=== PATIENT | female | born 1970 | race Hispanic/Latino ===

== ENCOUNTER 2024-07-05 16:09 | Emergency (ER) | payer BC ==
[~2024-07-05] VITALS: Ht 167.6 cm; Wt 86.2 kg
--- NOTE | 2024-07-05 16:25 | ERN ---
General Chief Complaint: Toe Pain/Injury Stated Complaint: MECHANICAL FALL Time Seen by MD: 16:12 History of Present Illness Initial Comments 54-year-old female who presents for left toe injury. She was at work on a mop bucket fell on her toe yesterday. She has bruising to the base of the 2nd and 3rd digits. Decreased range of motion due to pain. Neurovascularly intact. No other injuries. No medical conditions. Allergies: Coded Allergies: No Known Allergies (Unverified Allergy, Unknown, 07/05/24) Home Meds Active Scripts Meloxicam (Meloxicam) 15 Mg Tablet, 1 TAB PO DAILY for 10 Days, #10 TAB 0 R efills Prov:REN ARMIJO Abdulkadir DO 07/05/24 Acetaminophen with Codeine (Acetaminophen-Cod #3 Tablet) 300 Mg-30 Mg Tablet, 1 TAB PO Q6HPRN PRN for pain for 7 Days, #28 TAB 0 Refills Prov:REN ARMIJO DO 07/05/24 Past Medical History Past Medical History: No Pertinent History Past Surgical History: ROS Dictation CONSTITUTIONAL: No chills, no fever, no weakness, no diaphoresis, no malaise. HEAD/FACE: No signs of trauma. EENT: No eye pain, no blurred vision, no tearing, no double vision, no ear pain, no ear discharge, no nose pain, no nasal congestion, no throat pain, no throat swelling, no mouth pain. RESPIRATORY: No cough, no orthopnea, no SOB, no stridor, no wheezing. CARDIOVASCULAR: No chest pain, no edema, no palpitations, no syncope. GASTROINTESTINAL/ABDOMINAL: No abdominal pain, no constipation, no diarrhea, no nausea, no vomiting. GENITOURINARY: No abnormal discharge, no dysuria, no frequent urination, no hematuria. No complaints of pain in the genitals. MUSCULOSKELETAL: Left toe pain in. INTEGUMENTARY: No change in color, no change in hair/nails, no dryness, no lesion, no lumps, no rash. NEUROLOGICAL/PSYCH: No anxiety, not depressed, no emotional problem, no headache, no numbness, no pre-existing deficit, no history of seizures, no tremors, no weakness. HEMATOLOGIC/LYMPHATIC: Not anemic, no history of blood clots, no apparent bleeding, no bruising, glands not swollen. All Systems Negative, Except as Noted. Physical Exam Physical Exam Dictation VITAL SIGNS: Reviewed. GENERAL APPEARANCE: Alert, oriented x3, no acute distress. HEAD AND FACE: Non-traumatic. EYES: PERRL, pink conjunctivas, eyelid no trauma, anterior chamber clear. EARS: Pinnas intact and no signs of trauma or erythema. Ear canals clear and no discharge. TMs no erythema. NOSE: No discharge, no bleeding. OROPHARYNX: Mouth normal, teeth no caries, tongue pink. Pharynx clear, no e rythema. Tonsils no exudates, no abscesses noted. Mucous membrane moist. NECK: Supple, non-tender, no thyromegaly, no masses, no JVD, no bruits. BREAST: Deferred. CHEST: No tenderness, no crepitus, no paradoxical movement, no retractions. LUNGS: Clear, well-ventilated, symmetric, no rales, no wheezing, no rhonchi, no stridor, good breath sounds bilaterally. HEART: Regular rate, regular rhythm, no murmur, no gallops. VASCULAR: No peripheral edema. ABDOMEN: Soft, positive bowel sounds, nondistended, no guarding, nontender, no rebound, no masses no hepatomegaly, no splenomegaly, no Serrato's sign, no hernias. RECTAL: Deferred. GENITAL: Deferred. NEUROLOGICAL: Normal speech, gross motor function intact, gross sensory function intact. MUSCULOSKELETAL: Neck nontender, full range of motion, back nontender, full range of motion. Fabian of the base of 2nd and 3rd digits. EXTREMITIES: Nontender, full range of motion. SKIN: Color pink, dry, no turgor, no rash, no lacerations, no abrasions, no contusions. LYMPHATICS: Deferred. ED Course Orders Procedure Category Date Status Time Foot Comp 3+Vws Lt RAD 07/05/24 Taken 16:20 *Nursing CPOE 07/05/24 Verified Communication: 17:01 Vital Signs Date Time Temp Pulse Resp B/P (MAP) Pulse Ox O2 Delivery O2 Flow Rate FiO2 07/05/24 16:27 97.9 74 20 132/74 97 Room Air* 0 21 07/05/24 16:20 97.9 71 16 122/77 97 Room Air 0 DX & DISP Disposition: Discharge Departure Impression: Primary Impression: Fracture of proximal phalanx of toe of left foot Condition: Stable Scripts Meloxicam (Meloxicam) 15 Mg Tablet 1 TAB PO DAILY for 10 Days, #10 TAB 0 Refills Prov: REN ARMIJO DO 07/05/24 Acetaminophen with Codeine (Acetaminophen-Cod #3 Tablet) 300 Mg-30 Mg Tablet 1 TAB PO Q6HPRN PRN for pain for 7 Days, #28 TAB 0 Refills Prov: REN ARMIJO DO 07/05/24 Additional Instructions: You have a toe fracture at the base of the 3rd toe. Keep the toe ivelisse taped. You will need to follow up with an orthopedist within one week. I have given you a referral to Dr. Petersen. I have prescribed meloxicam and Tylenol with codeine to use as needed for pain. You can use both of these medications as prescribed. You can apply ice to the toe for 20 minutes, two or 3 times per day to reduce swelling. Limit weight-bearing activities and avoid tight or restrictive foot wear. I recommend a stiff-soled shoe. This helps reduce movement to the fractured toe. Please return to the emergency department if you have any concern. Referrals: NONE (PCP) JL PETERSEN MD, RYAN E DO Jul 05, 2024 16:24
[2024-07-05] MEDS ORDERED: ACET-2079 PO (16:59)
[2024-07-05] MEDS ORDERED: MELO-108 PO (16:59)
[2024-07-05 17:16] VITALS: BP 127/71; PULSE 71; RESP 18; TEMP 97.1; O2SAT 97
--- NOTE | 2024-07-05 17:51 | HMCIMG ---
FOOT COMP 3+VWS LT REASON: injury base of 2nd & 3rd digits TECHNIQUE: 3 views were obtained. FINDINGS: There is a spiral fracture of the proximal phalanx of the left third toe, nondisplaced. Bones appear otherwise unremarkable. Soft tissues appear unremarkable. IMPRESSION: 1. Nondisplaced fracture proximal phalanx of the left third toe.
== END 2024-07-05 17:19 | disposition home or self-care (01) ==
LOC: EDH 16:09
DX: S92.512A Displaced fracture of proximal phalanx of left lesser toe(s), initial encounter for closed fracture (principal); Z79.1 Long term (current) use of non-steroidal anti-inflammatories (NSAID); Z98.890 Other specified postprocedural states; W20.8XXA Other cause of strike by thrown, projected or falling object, initial encounter; Y93.89 Activity, other specified; Y92.89 Other specified places as the place of occurrence of the external cause; Y99.8 Other external cause status
CPT/HCPCS: 73630; 99283

== ENCOUNTER 2024-11-20 21:08 | Emergency (ER) | payer BC ==
[~2024-11-20] VITALS: Ht 165.1 cm; Wt 89.8 kg
[~2024-11-20 21:08] MED LIST: ACET-2079 PO; MELO-108 PO
[2024-11-20 21:57] LABS: BASOPHILS # (AUTO) 0.02 K/uL (0.00-0.20); BASOPHILS % (AUTO) 0.2 % (0.0-5.0); EOSINOPHILS # (AUTO) 0.01 K/uL (0.00-0.70); EOSINOPHILS % (AUTO) 0.1 % (0.0-8.0); HEMATOCRIT 33.8 % (36-48); IMMATURE GRANULOCYTE ABSOLUTE 0.04 K/uL (0-1); LYMPHOCYTES # (AUTO) 2.1 K/uL (1.0-4.8); LYMPHOCYTES % (AUTO) 19.1 % (21.0-51.0); MEAN CORPUSCULAR HGB CONC 32.5 g/dL (32.0-36.0); MEAN CORPUSCULAR VOLUME 92.1 fL (79-99); MONOCYTES # (AUTO) 0.9 K/uL (0.1-1.0); MONOCYTES % (AUTO) 8.3 % (3.0-13.0); NEUTROPHILS % (AUTO) 71.9 % (40.0-77.0); PLATELET COUNT (AUTO) 301 K/uL (130-400); RED BLOOD CELL COUNT(AUTO) 3.67 MIL/uL (4.00-5.50); RED CELL DISTRIBUTION WIDTH 11.9 % (11.0-15.5); WHITE BLOOD COUNT (AUTO) 11.1 K/uL (4.8-10.8)
[2024-11-20 21:58] LABS: APPEARANCE,URINE CLEAR (CLEAR); BILIRUBIN,URINE NEGATIVE (NEGATIVE); COLOR,URINE LIGHT-YELLOW (YELLOW); GLUCOSE, URINE (UA) NEGATIVE (NEGATIVE); KETONES,URINE NEGATIVE (NEGATIVE); LEUKOCYTE ESTERASE ,URINE NEGATIVE Leu/uL (NEGATIVE); NITRATE,URINE NEGATIVE (NEGATIVE); OCCULT BLOOD,URINE NEGATIVE (NEGATIVE); PROTEIN,URINE NEGATIVE (NEGATIVE)
[2024-11-20 21:59] LABS: ADD UA MICROSCOPIC YES
[2024-11-20 22:01] LABS: MUCUS,URINE RARE LPF (None Seen); RBC,URINE 0-1 /HPF (0-1); SQUAMOUS EPITHELIAL CELL,UR RARE /HPF (0-2); WBC,URINE 0-1 /HPF (0-1)
[2024-11-20 22:07] LABS: CREATININE 0.8 mg/dL (0.5-1.0); POTASSIUM 3.2 mmol/L (3.5-5.1)
[2024-11-20 22:12] LABS: ALBUMIN 3.4 g/dL (3.5-5.0); BILIRUBIN,TOTAL 0.2 mg/dL (0.2-1.0); TOTAL PROTEIN, SERUM 8.4 g/dL (6.0-8.3)
[2024-11-20 22:23] LABS: COVID19 (SARS ANTIGEN RAPID) PRESUMPTIVE NEGATIVE (NEGATIVE); INFLUENZA TYPE A Negative For Type A (NEGATIVE)
[2024-11-20 22:36] LABS: INFLUENZA TYPE B Positive For Type B (NEGATIVE)
[2024-11-20] MEDS: PoTASSium BIcarbonate/CIT AC 25 MEQ TABLET.EFF PO ONE (23:22)
--- NOTE | 2024-11-20 23:35 | ERN ---
ED Note History of Present Illness Stated Complaint: C/O SOB,REDNESS TO FACE Chief Complaint: Shortness of Breath Time Seen by MD: 21:22 Time Seen by Midlevel: 21:22 Dictation: The patient is a 54-year-old female with a history of who presents to the emergency department with complaints of shortness of breath, occasional cough with white mucus, facial flushing onset four days ago. Patient reports she was seen by her PCP who gave her an albuterol treatment and was discharged with steroids and doxycycline for pneumonia. Patient denies any chest pain, denies any fevers, Allergies: Coded Allergies: No Known Allergies (Unverified Allergy, Unknown, 07/05/24) Home Meds Active Scripts Meloxicam (Meloxicam) 15 Mg Tablet, 1 TAB PO DAILY for 10 Days, #10 TAB 0 Refills Prov:REN ARMIJO DO 07/05/24 Acetaminophen with Codeine (Acetaminophen-Cod #3 Tablet) 300 Mg-30 Mg Tablet, 1 TAB PO Q6HPRN PRN for pain for 7 Days, #28 TAB 0 Refills Prov:REN ARMIJO DO 07/05/24 Past Medical History Past Medical History: No Pertinent History Surgical History: RN Note Reviewed/Agreed w/PFSH: Yes Review of System Dictation Constitutional: Negative for fever,chills, and weight loss Eyes: Negative for injury, pain,redness, and discharge ENT: Negative for injury,pain or swelling Cardiovascular: Negative for chest pain, palpitations, and edema Respiratory: Negative for wheezing, positive for shortness of breath, cough Abdomen/GI: Negative for abdominal pain, nausea, vomiting, diarrhea, and constipation Back: Negative for injury and pain : Negative for injury, bleeding and discharge MS/Extremity: Negative for injury and deformity Skin: Negative for rash, and discoloration Neuro: Negative for headache, weakness, numbness, tingling, and seizure Psych: Negative for suicide ideation, homicidal ideation, and hallucinations Initial Vital Sign VS Vital Signs Date Time Temp Pulse Resp B/P (MAP) Pulse Ox O2 Delivery O2 Flow Rate FiO2 11/20/24 21:11 97.2 70 20 138/77 98 Room Air 11/20/24 21:26 0 21 Physical Exam Dictation Vital Signs reviewed General Appearance: Alert, oriented x 3, no acute distress, well developed, nourished. Head and Face: non-traumatic. Eyes: PERRL, pink conjunctivas, eyelid no trauma, anterior chamber with arcus senilis. Ears: Pinnas intact and no signs of trauma or erythema ear canals clear and no discharge TM no erythema Nose: No discharge, no bleeding. Oropharynx: Mouth normal, tongue pink. pharynx clear,no erythema, tonsils no exudates, no abscesses noted, mucous membrane moist Neck: Supple, non-tender, no thyromegaly, no masses, no JVD, no bruits Breast:Deferred Chest:No tenderness, no crepitus, no paradoxical movement, no retractions Lungs:Clear, well-ventilated, symmetric, no rales, no wheezing, no rhonchi, no stridor, good breath sounds bilaterally Heart: Regular rate, regular rhythm, no murmur, no gallops Vascular: no peripheral edema, Abdomen: Soft, positive bowel sounds, nondistended, no guarding, nontender, no rebound, no masses no hepatomegaly, no splenomegaly, no Serrato's sign, no hernias. Rectal: Deferred Genital: Deferred Neurological: Normal speech, motor function intact, sensory function intact Musculoskeletal: Neck nontender, full range of motion, back nontender, full range of motion, Extremities: nontender, full range of motion Skin: Color pink, dry, no turgor, no rash, no lacerations, no abrasions, no contusions. Lymphatic: Deferred Results (Laboratory/Radiology) Laboratory/Radiology Laboratory Tests Test 11/20/24 21:30 11/20/24 22:00 White Blood Count 11.1 K/uL (4.8-10.8) H Red Blood Count 3.67 MIL/uL (4.00-5.50) L Hemoglobin 11.0 g/dL (12.0-16.0) L Hematocrit 33.8 % (36-48) L Mean Corpuscular Volume 92.1 fL (79-99) Mean Corpuscular Hemoglobin 30.0 pg (27.0-33.0) Mean Corpuscular Hemoglobin Concent 32.5 g/dL (32.0-36.0) Red Cell Distribution Width 11.9 % (11.0-15.5) Platelet Count 301 K/uL (130-400) Mean Platelet Volume 10.0 fL (7.5-10.5) Immature Granulocyte % (Auto) 0.4 % (0-1) Neutrophils (%) (Auto) 71.9 % (40.0-77.0) Lymphocytes (%) (Auto) 19.1 % (21.0-51.0) L Monocytes (%) (Auto) 8.3 % (3.0-13.0) Eosinophils (%) (Auto) 0.1 % (0.0-8.0) Basophils (%) (Auto) 0.2 % (0.0-5.0) Neutrophils # (Auto) 8.0 K/uL (1.8-7.7) H Lymphocytes # (Auto) 2.1 K/uL (1.0-4.8) Monocytes # (Auto) 0.9 K/uL (0.1-1.0) Eosinophils # (Auto) 0.01 K/uL (0.00-0.70) Basophils # (Auto) 0.02 K/uL (0.00-0.20) Absolute Immature Granulocyte (auto 0.04 K/uL (0-1) Nucleated Red Blood Cells 0.0 % (0.0-0.19) Urine Color LIGHT-YELLOW (YELLOW) Urine Appearance CLEAR (CLEAR) Urine pH 7.0 (5.0-8.0) Urine Specific [place] 1.016 (1.001-1.031) Urine Protein NEGATIVE mg/dL (NEGATIVE) Urine Glucose (UA) NEGATIVE mg/dL (NEGATIVE) Urine Ketones NEGATIVE mg/dL (NEGATIVE) Urine Occult Blood NEGATIVE (NEGATIVE) Urine Nitrate NEGATIVE (NEGATIVE) Urine Bilirubin NEGATIVE mg/dL (NEGATIVE) Urine Urobilinogen 2.0 mg/dL (0.2-1.0) H Urine Leukocyte Esterase NEGATIVE Belinda/uL Urine RBC 0-1 /HPF (0-1) Urine WBC 0-1 /HPF (0-1) Urine Squamous Epithelial Cells RARE /HPF (0-2) Urine Bacteria None /HPF (None Seen) Sodium Level 143 mmol/L (136-145) Potassium Level 3.2 mmol/L (3.5-5.1) L Chloride Level 109 mmol/L (101-111) Carbon Dioxide Level 25 mmol/L (21-32) Blood Urea Nitrogen 17 mg/dL (7-18) Creatinine 0.8 mg/dL (0.5-1.0) Glomerular Filtration Rate Calc 88 mL/min (>90) Random Glucose 158 mg/dL (70-105) H Total Calcium 8.9 mg/dL (8.5-10.1) Total Bilirubin 0.2 mg/dL (0.2-1.0) Aspartate Amino Transf (AST/SGOT) 23 U/L (10-37) Alanine Aminotransferase (ALT/SGPT) 35 U/L (12-78) Alkaline Phosphatase 99 U/L (50-136) Troponin I High Sensitivity < 4 ng/L (4-50) L B-Type Natriuretic Peptide 63 pg/mL (0-100) Total Protein 8.4 g/dL (6.0-8.3) H Albumin 3.4 g/dL (3.5-5.0) L Influenza Type A Antigen Negative For Type A Influenza Type B Antigen Positive For Type B SARS-CoV-2 Antigen (Rapid) PRESUMPTIVE NEGATIVE Labs Reviewed?: Yes EKG: (+) rhythm (Sinus rhythm) EKG Comment: Date:11/20/2024 Time:2158 Ventricular rate:62 NV interval:142 QRS duration:85 QT/QTc:396 EKG interpretation: Sinus rhythm Reviewed by ED Attending no STEMI ED Course ED Course Orders Procedure Category Date Status Time Cbc With Differential LAB 11/20/24 Complete 21:43 Comprehensive LAB 11/20/24 Complete Metabolic Panel 21:43 Troponin I High LAB 11/20/24 Complete Sensitivity 21:43 12 Lead Ekg Tracing- EKG 11/20/24 Logged Technical 21:43 Urinalysis Profile LAB 11/20/24 Complete 21:43 Chest 1vw RAD 11/20/24 Taken 21:51 Covid19 (Sars Antigen LAB 11/20/24 Complete Rapid) 21:51 Influenza Type A & B, LAB 11/20/24 Complete Rapid 21:51 B-Type Natriuretic LAB 11/20/24 Complete Peptide 22:18 Potassium Bicarb/Cit PHA 11/20/24 In Process Ac 25meq (K-Lyte Ta 23:30 Current Medications Medications (Trade) Dose Ordered Sig/Flavio Route PRN Reason Start Time Stop Time Status Last Admin Dose Admin Potassium Bicarbonate (K-Lyte Tablet Eff 25 Meq Tablet.eff) 25 meq ONCE ONCE PO 11/20/24 23:30 11/20/24 23:31 11/20/24 23:22 Vital Signs Date Time Temp Pulse Resp B/P (MAP) Pulse Ox O2 Delivery O2 Flow Rate FiO2 11/20/24 21:26 74 20 121/62 98 Room Air* 0 21 11/20/24 21:11 97.2 70 20 138/77 98 Room Air Medical Decision Making MDM The patient is a 54-year-old female with a history of who presents to the emergency department with complaints of shortness of breath, occasional cough with white mucus, facial flushing onset four days ago. Patient reports she was seen by her PCP who gave her an albuterol treatment and was discharged with steroids and doxycycline for pneumonia. Patient denies any chest pain, denies any fevers, CBC showed mild leukocytosis, normocytic anemia, chemistry showed mild hypokalemia, GFR of 88, negative troponin, negative BNP, urinalysis unrema rkable, serology positive for influenza B. given patient already with four days of symptoms in no risk factors she will probably have no benefit with Tamiflu. X-ray showed no obvious consolidation. Patient is however already being treated with doxycycline for pneumonia. She is on steroids and has albuterol treatments at home. Patient currently in no acute distress. Clear lung sounds. Stable vital signs. Patient 98% on room air. Labs and imaging discussed with the patient who agrees to be discharged and follow up with PCP. Differential diagnosis: Upper respiratory infection, pneumonia, ACS, fluid overload Need for hospitalization: Patient does not meet criteria for hospitalization. There are no social concerns with this patient. DX & DISP Disposition: Discharge Departure Impression: Primary Impression: Influenza B Additional Impression: URI (upper respiratory infection) Condition: Stable Additional Instructions: Please follow up with the primary doctor in 1-2 days. Continue your medication treatment as instructed by your PCP. If symptoms worsen please return to ER. FOLLOW-UP WITH PRIMARY CARE PROVIDER IN 1 TO 2 DAYS. TAKE MEDICATIONS DIRECTED HERE IN THE EMERGENCY ROOM. OKAY TO CONTINUE HOME MEDICATIONS UNLESS O THERWISE DISCUSSED DURING YOUR VISIT IN THE EMERGENCY ROOM TODAY. RETURN TO YOUR NEAREST EMERGENCY ROOM IF SYMPTOMS WORSEN OR IF THERE IS NO IMPROVEMENT. CALL 911 IF YOU NEED IMMEDIATE ASSISTANCE. TAKE TYLENOL OR MOTRIN [id number] NEEDED AND IF NO CONTRAINDICATIONS ARE PRESENT. INCREASE ORAL HYDRATION. A WOUND CULTURE OR URINE CULTURE WAS ORDERED HERE IN THE EMERGENCY ROOM DEPARTMENT PLEASE FOLLOW-UP WITH PRIMARY CARE PROVIDER AND ADVISE THEM TO GET REPEAT PORTS FROM OUR FACILITY. IF YOU HAD ANY MARIJA WRAP/SPLINTS THAT WERE APPLIED HERE, PLEASE DO NOT REMOVE THEM UNTIL YOU SEE YOUR PRIMARY CARE OR SPECIALTY. Referrals: LUIS A LEÓN PA-C (PCP) Time of Disposition: 23:31 I have reviewed the case, and I agree with, Diagnosis and Plan JADE SR November 20, 2024 23:35
[2024-11-20 23:46] VITALS: BP 116/59; PULSE 67; RESP 20; TEMP 97.3; O2SAT 98
--- NOTE | 2024-11-21 06:44 | EKG ---
[facility] Test Date: 2024-11-20 Test Time: 21:59:37 Pat Name: SHANNAN STOKES Department: ED Room: Gender: F [employer] Director: [id number] : 1970 Requested By: JADE SR Order Number: [id number] Reading MD: Rene Villa Measurements Intervals [place] Rate: 62 P: 60 NV: 142 QRS: 32 QRSD: 85 T: 20 QT: 399 QTc: 406 Interpretive Statements Sinus rhythm Inferior infarct, old Borderline ST elevation, lateral leads No previous ECG available for comparison Electronically Signed On 11-21-2024 16:54:35 CDT by Rene Villa Please click the below link to view image of tracing.
--- NOTE | 2024-11-21 09:31 | HMCIMG ---
CHEST 1VW HISTORY: Shortness of breath COMPARISON: None FINDINGS: A frontal projection of the chest was obtained. No acute pulmonary infiltrates is seen. The heart is normal in size. Prominent interstitial markings are seen No evidence of aortic calcification is seen. IMPRESSION: 1. No acute pulmonary infiltrate is seen.
== END 2024-11-20 23:47 | disposition home or self-care (01) ==
LOC: EDH 21:08
DX: J10.1 Influenza due to other identified influenza virus with other respiratory manifestations (principal); Z79.1 Long term (current) use of non-steroidal anti-inflammatories (NSAID); Z20.822 Contact with and (suspected) exposure to COVID-19; Z98.890 Other specified postprocedural states
CPT/HCPCS: 36415; 71045; 80053; 81001; 83880; 84484; 85025; 87426; 87804; 93005; 99283; 99284